=== PATIENT | male | born 1955 | race Caucasian/White ===

== ENCOUNTER 2018-07-19 19:13 | Emergency (ER) | payer SELFPAY ==
[~2018-07-19] VITALS: Ht 165.1 cm; Wt 59.4 kg
[2018-07-19 19:20] VITALS: Ht 165.1 cm; Wt 59.4 kg
[2018-07-19 21:25] LABS: PLATELET COUNT 297 x10^3mcL (130-400)
[2018-07-19 21:27] LABS: BASOPHIL % 0 % (0-2); RED CELL DISTRIBUTION WIDTH 16.5 % (11.5-14.5)
[2018-07-19 21:33] LABS: UA SPECIFIC GRAVITY 1.015 (1.005-1.035); microscopic required? YES; urine erythrocyte 2+ (NEGATIVE)
[2018-07-19 21:50] LABS: BILIRUBIN TOTAL 0.2 mg/dL (0.20-1.00); CALCIUM 7.2 mg/dL (8.5-10.1); CARBON DIOXIDE 19.5 mmol/L (21-32); POTASSIUM SERUM 3.9 mmol/L (3.5-5.1); T4(THYROXINE) 5.9 ug/dL (4.7-13.3); TOTAL PROTEIN, SERUM 7.7 g/dL (6.4-8.2)
[2018-07-19 21:54] LABS: ALBUMIN 2.4 g/dL (3.4-5.0)
[2018-07-19 21:56] LABS: CREATININE SERUM 4.7 mg/dL (0.7-1.3)
[2018-07-19 22:04] LABS: AMPHETAMINE QUAL UR POSITIVE (See below)
[2018-07-19 23:37] VITALS: BP 116/80
== END 2018-07-19 23:37 | disposition left against medical advice (07) ==
LOC: ED 19:13
PROVIDERS: Emergency Medicine
DX: N17.9 Acute kidney failure, unspecified (principal); R79.89 Other specified abnormal findings of blood chemistry; N63.20 Unspecified lump in the left breast, unspecified quadrant; N63.10 Unspecified lump in the right breast, unspecified quadrant; E46 Unspecified protein-calorie malnutrition; D64.9 Anemia, unspecified; E87.2 Acidosis; F15.10 Other stimulant abuse, uncomplicated; F64.0 Transsexualism; Z60.2 Problems related to living alone
CPT/HCPCS: 36415